=== PATIENT | female | born 1965 | race Caucasian/White ===

== ENCOUNTER 2017-12-17 09:03 | Emergency (ER) | payer OTHER ==
[2017-12-17 09:13] VITALS: BP 116/74; PULSE 91; TEMP 99.8; BMI 22.8
--- NOTE | 2017-12-17 10:29 | PDOC ---
History of Present Illness - General Chief Complaint: Respiratory Stated Complaint: COUGH,FEVER Time Seen by Provider: 12/17/17 09:28 History Source: Patient Exam Limitations: No Limitations - History of Present Illness Initial Comments: 12/17/17 17:03 Patient is a [52-year-old female, no significant medical history currently on no medication presents with fever, cough, headache, chills and bodyaches with influenza. ] Past Medical History: [Denies]. Allergies: No known allergies Medications: [Denies] Family History: Non-contributory Social History: Denies smoking, alcohol use, or IVDU Review of Systems GENERAL/CONSTITUTIONAL: [Fever and bodyaches. No weakness. No weight change.] HEAD, EYES, EARS, NOSE AND THROAT: [No change in vision. No ear pain or discharge. No sore throat. ] CARDIOVASCULAR: [No chest pain or shortness of breath.] RESPIRATORY: [Nonproductive cough, wheezing, or hemoptysis.] GASTROINTESTINAL: [No nausea, vomiting, diarrhea or constipation. No rectal bleeding.] GENITOURINARY: [No dysuria, frequency, or change in urination.] MUSCULOSKELETAL: [No joint or muscle swelling or pain. No neck or back pain.] SKIN AND BREASTS: [No rash or easy bruising.] NEUROLOGIC: [No headache, vertigo, loss of consciousness, or loss of sensation.] PSYCHIATRIC: [No depression or anxiety.] ENDOCRINE: [No increased thirst. No abnormal weight change.] HEMATOLOGIC/LYMPHATIC: [No anemia, easy bleeding, or history of blood clots.] ALLERGIC/IMMUNOLOGIC: [No hives or skin allergy. No latex allergy.] Physical Exam: GENERAL: [The patient is awake, alert, and fully oriented, in no acute distress. ] EYES: [Pupils equal, round and reactive to light, extraocular movements intact, sclera anicteric, conjunctiva clear.] ENT: [Ears normal, nares patent, oropharynx clear without exudates. Moist mucous membranes. No uvula deviation] NECK: [Normal range of motion, supple without lymphadenopathy, JVD, or masses.] LUNGS: [Breath sounds equal, clear to auscultation bilaterally. No wheezes, and no crackles.] HEART: [Regular rate and rhythm, normal S1 and S2 without murmur, rub or gallop. ] ABDOMEN: [Soft, nontender, normoactive bowel sounds. No guarding, no rebound. No masses. No bruising or abrasions] MUSCULOSKELETAL: [Normal range of motion, no edema. No clubbing or cyanosis. No cords, erythema, or tenderness. No CVA Tenderness with fist.] NEUROLOGICAL: [Cranial nerves II through XII grossly intact. Normal speech, normal gait.] PSYCH: [Normal mood, normal affect.] SKIN: [Warm, Dry, normal turgor, no rashes or lesions noted.] Past History - Past Medical History Allergies/Adverse Reactions: Allergies Allergy/AdvReac Type Severity Reaction Status Date / Time No Known Allergies Allergy Verified 12/17/17 09:10 Home Medications: Ambulatory Orders Oseltamivir Phosphate [Tamiflu -] 75 mg PO BID #10 capsule 12/17/17 COPD: No - Immunization History Immunization Up to Date: No - Suicide/Smoking/Psychosocial Hx Smoking History: Never smoked Hx Alcohol Use: No Drug/Substance Use Hx: No Substance Use Type: None *Physical Exam - Vital Signs Last Vital Signs Temp Pulse Resp BP Pulse Ox 99.8 F H 91 H 18 116/74 96 12/17/17 09:10 12/17/17 09:10 12/17/17 09:10 12/17/17 09:10 12/17/17 09:10 Medical Decision Making - Medical Decision Making 12/17/17 17:05 A/P: Patient with influenza-type illness, especially influenza B will discharge patient on Tamiflu, follow-up with PMD. Patient to maintain well hydration. I discussed the physical exam findings and final diagnoses with the patient. I answered all of the patient's questions. The patient was satisfied with the care received and felt comfortable with the discharge plan and treatment plan. The patient will call to arrange follow-up and will return to the Emergency Department with any new, persistent or worsening symptoms. *DC/Admit/Observation/Transfer Diagnosis at time of Disposition: Exposure to influenza - Discharge Dispostion Disposition: HOME Condition at time of disposition: Good Admit: No - Prescriptions Prescriptions: Oseltamivir Phosphate [Tamiflu -] 75 mg PO BID #10 capsule - Referrals Referrals: Derrell Martinez MD [Primary Care Provider] - - Patient Instructions Printed Discharge Instructions: Influenza (Alternative Therapy), Influenza Additional Instructions: You have been exposed influenza B and or demonstrating symptoms. Please take the medication as directed. You are contagious. Please attempt to avoid contact of multiple individuals as this will cause the infection to spread. Return to emergency room if shortness of breath, wheezing, fever greater than 101, chest pain, or fainting occurs. - Post Discharge Activity Forms/Work/School Notes: Back to Work
== END 2017-12-17 10:38 | disposition home or self-care (01) ==
LOC: JERFT 09:03
DX: J11.1 Influenza due to unidentified influenza virus with other respiratory manifestations (principal)
CPT/HCPCS: 99281-25

== ENCOUNTER 2018-12-25 11:20 | Emergency (ER) | payer OTHER ==
[2018-12-25 11:44] VITALS: BP 126/79; PULSE 117; TEMP 99.4; BMI 23.0
--- NOTE | 2018-12-25 12:10 | PDOC ---
History of Present Illness - General Chief Complaint: Cold Symptoms Stated Complaint: PAIN/COUGH Time Seen by Provider: 12/25/18 12:05 History Source: Patient Exam Limitations: No Limitations - History of Present Illness Initial Comments: 12/25/18 12:17 Came to emergency department for evaluation of 4 days of fevers, chills, cough with yellow phlegm production, earache and sore throat pain, general body aches. States most of family is ill with the same. No one has sought medical attention nor diagnosed with influenza. Patient has been using [id number] medications with some resolved Timing/Duration: reports: constant, intermittent Severity: reports: mild, moderate Associated Symptoms: reports: chest pain/soreness, cough, earache, fever/chills , muscle aches, nasal congestion Past History - Travel Traveled outside of the country in the last 30 days: No Close contact w/someone who was outside of country & ill: No - Past Medical History Allergies/Adverse Reactions: Allergies Allergy/AdvReac Type Severity Reaction Status Date / Time No Known Allergies Allergy Verified 12/25/18 11:41 Home Medications: Ambulatory Orders Albuterol Sulfate Inhaler - [Ventolin HFA Inhaler -] 1 - 2 inh PO Q4H #1 inhaler 12/25/18 Benzonatate [Tessalon Pearls -] 100 mg PO TID #21 capsule 12/25/18 COPD: No DVT: No Hypercholesterolemia: Yes - Immunization History Immunization Up to Date: No - Suicide/Smoking/Psychosocial Hx Smoking History: Never smoked Hx Alcohol Use: No Drug/Substance Use Hx: No Substance Use Type: None Review of Systems - Review of Systems Able to Perform ROS?: Yes Is the patient limited Maltese proficient: Yes Constitutional: Yes: Symptoms Reported, See HPI, Fever, Malaise, Weakness HEENTM: Yes: Symptoms Reported, See HPI, Nose Congestion, Throat Swelling Respiratory: Yes: Symptoms reported, See HPI, Cough (yellow phlem). No: Wheezing Musculoskeletal: Yes: Symptoms Reported, Muscle Pain All Other Systems: Reviewed and Negative *Physical Exam - Vital Signs Last Vital Signs Temp Pulse Resp BP Pulse Ox 99.4 F 117 H 19 126/79 96 12/25/18 11:41 12/25/18 11:41 12/25/18 11:41 12/25/18 11:41 12/25/18 11:41 - Physical Exam Comments: 12/25/18 12:19 GENERAL: [The child is awake, alert, and appropriately interactive.] EYES: [The pupils are equal, round, and reactive to light, with clear, conjunctiva.but glassy] NOSE: [The nose with clear drainage EARS: [The ear canals and tympanic membranes are congested but landmarks easily visualed ] THROAT: [The oropharynx is clear with erythema, no exudates. The mucous membranes are moist.] NECK: [The neck is supple with mildly tender adenopathy, no menigemous] CHEST: [The lungs are coarse but clear without crackles, or wheezes, moist productive cough of thick clear yellow tinged sputum.] HEART: [Heart is regular rhythm, with normal S1 and S2, no murmurs.] ABDOMEN: [The abdomen is soft and nontender with normal bowel sounds. There is no organomegaly and no mass. There is no guarding or rebound.] EXTREMITIES: [Extremities are normal.] NEURO: [Behavior is normal for age.cranky but easily,m Tone is normal.] SKIN: [Skin is unremarkable without rash or swelling. There is no bruising, and there are no other signs of injury.] Moderate Sedation - Procedure Monitoring Vital Signs: Procedure Monitoring Vital Signs Temperature 99.4 F 12/25/18 11:41 Pulse Rate 117 H 12/25/18 11:41 Respiratory Rate 19 12/25/18 11:41 Blood Pressure 126/79 12/25/18 11:41 O2 Sat by Pulse Oximetry (%) 96 12/25/18 11:41 Progress Note - Progress Note Progress Note: Much improved after albuterol nebulizer, therefore will dispense albuterol inhaler with instructions to use, also Tessalon Perles. Patient is outside window for Tamiflu as is probable influenza infection. *DC/Admit/Observation/Transfer Diagnosis at time of Disposition: Influenzal acute upper respiratory infection - Discharge Dispostion Disposition: HOME Condition at time of disposition: Stable Decision to Admit order: No - Prescriptions Prescriptions: Albuterol Sulfate Inhaler - [Ventolin HFA Inhaler -] 1 - 2 inh PO Q4H #1 inhaler Benzonatate [Tessalon Pearls -] 100 mg PO TID #21 capsule - Referrals Referrals: Derrell Martinez MD [Primary Care Provider] - - Patient Instructions Printed Discharge Instructions: DI for Viral Upper Respiratory Infection -- Adult Additional Instructions: Rest, drink lots of fluids: Teas, water, soups, Pedialyte Saltwater gargles Steamy showers/seem to face break up mucus Old-fashioned treatments help! Avoid contact with others until fevers and cough resolved as this is very contagious Lots of handwashing and good hygiene Continue [id number] medications for symptomatic relief Tylenol or Motrin for fever and pain Albuterol inhaler, 2 puffs 4 times a day for the next 3 days then as needed for continued cough and shortness of breath. May use Tessalon Perles for cough every 8 hours as needed Followup with private physician in one to 2 days as needed or if worsening Return to emergency department for worsened symptoms, fevers, dehydration Influenza takes between 5 and 7 days for resolution To not participate in any activity, work, or school until fevers and cough are gone for at least one day - Post Discharge Activity
[2018-12-25] MEDS ORDERED: ALBUTEROL SO4 2.5/IPRATROPIUM 0.5 INH SOL 3 ML VIAL.NEB. NEB ONE ×2 (12:16→12:17)
== END 2018-12-25 12:51 | disposition home or self-care (01) ==
LOC: JERFT 11:20
PROC: 3E0F7GC Introduction of Other Therapeutic Substance into Respiratory Tract, Via Natural or Artificial Opening (ICD-10-PCS; principal; 2018-12-25)
DX: J11.1 Influenza due to unidentified influenza virus with other respiratory manifestations (principal)
CPT/HCPCS: 94640; 99281-25